=== PATIENT | male | born 1975 | race Caucasian/White ===

== ENCOUNTER 2016-08-12 14:35 | Outpatient (CLI) | payer OTHER ==
--- NOTE | 2016-08-12 17:05 | DIAGNOSTIC IMAGING REPORT ---
PROCEDURE: US SCROTUM/TESTICLE INDICATION: SOFT TISSUE SWELLING,R/O TORSION TECHNIQUE: Macdonald scale and color Doppler sonographic images through the scrotum were obtained. COMPARISON: None. FINDINGS: Echogenic area between the testes that consistent with air from recent mastectomy. RIGHT TESTICLE: Testicle measures 4.8 x 3.2 x 2.3 cm with normal echo structure and vascularity. 4 ml right epididymal head cyst or spermatocele. LEFT TESTICLE: Testicle measures 4.6 x 3.4 x 2.2 cm with normal echo structure and mildly increased vascularity. 5 mm epididymal cyst versus spermatocele. Left varicocele present. IMPRESSION: 1. Left varicocele. Mildly increased left testicular vascularity which may be related to the varicocele while orchitis is less likely. 2. Results discussed with Dr. Hurtado
== END 2016-08-12 23:00 ==
LOC: US SRH 14:35
DX: I86.1 Scrotal varices (principal)